=== PATIENT | male | born 1960 | race Caucasian/White ===

== ENCOUNTER 2020-06-16 18:15 | Inpatient (IN) | payer MEDICAID, MEDICARE, OTHER ==
[~2020-06-16] VITALS: Ht 172.7 cm; Wt 90.7 kg
[2020-06-16] MEDS ORDERED: METH5TAB70 PO (18:36)
[2020-06-16] MEDS ORDERED: ATOR20TA PO (18:36)
[2020-06-16] MEDS ORDERED: OLAN10TA3 PO (18:36)
[2020-06-16] MEDS ORDERED: METF500T PO (18:36)
[2020-06-16] MEDS ORDERED: THIA50TA10 PO (18:36)
[2020-06-16] MEDS ORDERED: MVI,10VI2 IV (18:36)
[2020-06-16] MEDS ORDERED: DIVA500T2 PO (18:36)
[2020-06-16] MEDS ORDERED: FOLI0.4T2 PO (18:36)
[2020-06-16] MEDS ORDERED: BUPR-96 PO (18:36)
[2020-06-16] MEDS ORDERED: TRAZ300T2 PO (18:36)
[2020-06-16 19:54] LABS: BASOPHILS # (AUTO) 0.1 K/uL (0.0-8.0); BASOPHILS % (AUTO) 0.9 % (0.0-2.0); EOSINOPHILS # (AUTO) 0.4 K/uL (0.0-0.7); HEMATOCRIT 44.5 % (36.7-47.1); HEMOGLOBIN 15.1 g/dL (12.5-16.3); LYMPHOCYTES # (AUTO) 4.2 K/uL (20.0-40.0); LYMPHOCYTES % (AUTO) 34.8 % (20.5-51.5); MEAN CORPUSCULAR HEMOGLOBIN 32.9 uug (23.8-33.4); MEAN CORPUSCULAR HGB CONC 34 g/dL (32.5-36.3); MEAN CORPUSCULAR VOLUME 96.8 fL (73.0-96.2); MONOCYTES # (AUTO) 0.8 K/uL (2.0-10.0); MONOCYTES % (AUTO) 6.4 % (0.0-11.0); NEUTROPHILS # (AUTO) 6.6 K/uL (1.8-8.9); NEUTROPHILS % (AUTO) 54.9 % (38.5-71.5); PLATELET COUNT (AUTO) 220 K/uL (152-348); WHITE BLOOD COUNT (AUTO) 12.1 K/uL (3.6-10.2)
[2020-06-16 19:55] LABS: *BILIRUBIN,URIN NEGATIVE (NEGATIVE); *CLARITY,URINE CLEAR (CLEAR); *COLOR,URINE YELLOW (YELLOW); *KETONES,URINE NEGATIVE (NEGATIVE); *UROBILINOGEN,URINE 0.2 E.U./dl (NORMAL); LEUKOCYTE ESTERASE ,URINE NEGATIVE (NEGATIVE); NITRITE, URINE NEGATIVE (NEGATIVE); UGLUCOSE NEGATIVE (NEGATIVE)
[2020-06-16 20:03] LABS: *BLOOD, URINE TRACE INTACT (NEGATIVE)
[2020-06-16 20:05] LABS: CARBON DIOXIDE 28 mmol/L (21-32); CHLORIDE 101 mmol/L (98-107); CREATININE 1.2 mg/dL (0.6-1.3); GLUCOSE 128 mg/dL (74-106); POTASSIUM 4.3 mmol/L (3.5-5.1); UREA NITROGEN, BLOOD 20 mg/dL (7-18)
[2020-06-16] MEDS: OLANZAPINE 5 MG TABLET PO ONE ×2 (20:15→20:26)
[2020-06-16 20:17] LABS: ALANINE AMINOTRANSFERASE 22 U/L (16-63); ALKALINE PHOSPHATASE 83 U/L (50-136); ASPARTATE AMINOTRANSFERASE 19 U/L (15-37); BILIRUBIN,DIRECT 0.1 mg/dL (0.0-0.2); BILIRUBIN,TOTAL 0.3 mg/dL (0.2-1.0); ETHANOL < 3 MG/DL (0-0); TOTAL PROTEIN, SERUM 7.2 g/dL (6.4-8.2)
[2020-06-16] MEDS ORDERED: CETIRIZINE HCL 10 MG TABLET ONE (20:27)
[2020-06-16 20:40] LABS: THYROID STIMULATING HORMONE 0.478 mIU/mL (0.358-3.740)
[2020-06-16 20:55] LABS: BACTERIA,URINE NONE SEEN /HPF (NONE SEEN); RBC,URINE 0-3 /HPF (0-3); SQUAMOUS EPITHELIAL CELL,UR FEW /HPF (NONE SEEN); WBC,URINE 0-3 /HPF (0-3)
[2020-06-17] MEDS ORDERED: OLANZAPINE 5 MG TABLET ONE (00:46)
[2020-06-17] MEDS ORDERED: OLANZAPINE 5 MG TABLET PO ONE (01:00)
[2020-06-17] MEDS ORDERED: ACETAMINOPHEN 325 MG TABLET PO PRN (02:00)
[2020-06-17] MEDS ORDERED: LORAZEPAM 1 MG TABLET PO PRN (02:00)
[2020-06-17] MEDS ORDERED: ZOLPIDEM 5 MG TABLET PO PRN (02:00)
[2020-06-17] MEDS ORDERED: MAGNESIUM HYDROXIDE 30 ML LIQUID UDC PO PRN (02:00)
[2020-06-17] MEDS ORDERED: MAG HYDROX/AL HYDROX/SIMETH 30 ML LIQUID UDC PO PRN (02:00)
[2020-06-17] MEDS ORDERED: BLOOD SUGAR DIAGNOSTIC 1 EACH STRIP VI ONE (02:00)
[2020-06-17 02:26] VITALS: BP 125/89
[2020-06-17 07:30] VITALS: BP 100/64
[2020-06-17] MEDS ORDERED: HYDROXYZINE PAMOATE 25 MG CAPSULE PO PRN (09:00)
[2020-06-17] MEDS: OLANZAPINE 5 MG TABLET PO SCH ×2 (11:09→16:27)
[2020-06-17] MEDS: DIVALPROEX 500 MG TABLET.DR PO SCH ×2 (11:09→20:19)
[2020-06-17] MEDS: buPROPion SR 150 MG TABLET.SA PO SCH (11:10)
[2020-06-17] MEDS: METHIMAZOLE 5 MG TABLET PO SCH ×2 (15:11→20:20)
[2020-06-17 15:52] VITALS: BP 115/75
[2020-06-17] MEDS: METFORMIN HCL 500 MG TABLET PO SCH (16:27)
[2020-06-17 20:00] VITALS: BP 122/76
[2020-06-17] MEDS: ATORVASTATIN 20 MG TABLET PO SCH (20:19)
[2020-06-17] MEDS: TRAZODONE 100 MG TABLET PO PRN (21:34)
[2020-06-18] MEDS: METHIMAZOLE 5 MG TABLET PO SCH ×3 (05:35→21:07)
[2020-06-18 07:30] VITALS: BP 109/62
[2020-06-18 08:35] LABS: CREATININE 1.2 mg/dL (0.6-1.3); POTASSIUM 4.9 mmol/L (3.5-5.1)
[2020-06-18] MEDS: FOLIC ACID 1 MG TABLET PO SCH (08:38)
[2020-06-18] MEDS: DIVALPROEX 500 MG TABLET.DR PO SCH ×2 (08:38→20:09)
[2020-06-18] MEDS: METFORMIN HCL 500 MG TABLET PO SCH ×2 (08:38→16:32)
[2020-06-18] MEDS: MULTIVIT, IRON, MIN NO. 8, FA TABLET PO SCH (08:38)
[2020-06-18] MEDS: buPROPion SR 150 MG TABLET.SA PO SCH (08:38)
[2020-06-18] MEDS: THIAMINE HCL 100 MG TABLET PO SCH (08:38)
[2020-06-18] MEDS: OLANZAPINE 5 MG TABLET PO SCH ×2 (08:38→16:32)
[2020-06-18 09:08] LABS: BILIRUBIN,TOTAL 0.4 mg/dL (0.2-1.0); TOTAL PROTEIN, SERUM 7.8 g/dL (6.4-8.2)
[2020-06-18 16:00] VITALS: BP 113/53
[2020-06-18] MEDS: ATORVASTATIN 20 MG TABLET PO SCH (20:10)
[2020-06-18 20:32] VITALS: BP 130/77
[2020-06-18] MEDS: TRAZODONE 100 MG TABLET PO PRN (21:08)
[2020-06-19] MEDS: METHIMAZOLE 5 MG TABLET PO SCH ×3 (06:06→21:01)
[2020-06-19 07:30] VITALS: BP 110/74
[2020-06-19] MEDS: MULTIVIT, IRON, MIN NO. 8, FA TABLET PO SCH (08:18)
[2020-06-19] MEDS: METFORMIN HCL 500 MG TABLET PO SCH ×2 (08:18→16:39)
[2020-06-19] MEDS: DIVALPROEX 500 MG TABLET.DR PO SCH ×2 (08:18→20:16)
[2020-06-19] MEDS: FOLIC ACID 1 MG TABLET PO SCH (08:18)
[2020-06-19] MEDS: NICOTINE 14 MG/24HR PATCH TD SCH (08:19)
[2020-06-19] MEDS: THIAMINE HCL 100 MG TABLET PO SCH (08:19)
[2020-06-19] MEDS: OLANZAPINE 5 MG TABLET PO SCH ×2 (08:19→16:39)
[2020-06-19] MEDS: buPROPion SR 150 MG TABLET.SA PO SCH (08:21)
[2020-06-19 15:31] VITALS: BP 110/72
[2020-06-19] MEDS: ATORVASTATIN 20 MG TABLET PO SCH (20:16)
[2020-06-19 20:36] VITALS: BP 106/70
[2020-06-19] MEDS: TRAZODONE 100 MG TABLET PO PRN (21:01)
[2020-06-20] MEDS: METHIMAZOLE 5 MG TABLET PO SCH ×3 (05:48→21:02)
[2020-06-20 07:30] VITALS: BP 92/51
[2020-06-20] MEDS: MULTIVIT, IRON, MIN NO. 8, FA TABLET PO SCH (08:19)
[2020-06-20] MEDS: OLANZAPINE 5 MG TABLET PO SCH ×2 (08:19→17:11)
[2020-06-20] MEDS: DIVALPROEX 500 MG TABLET.DR PO SCH ×2 (08:20→21:02)
[2020-06-20] MEDS: buPROPion SR 150 MG TABLET.SA PO SCH (08:20)
[2020-06-20] MEDS: FOLIC ACID 1 MG TABLET PO SCH (08:20)
[2020-06-20] MEDS: THIAMINE HCL 100 MG TABLET PO SCH (08:20)
[2020-06-20] MEDS: NICOTINE 14 MG/24HR PATCH TD SCH (08:21)
[2020-06-20] MEDS: METFORMIN HCL 500 MG TABLET PO SCH ×2 (08:21→17:11)
[2020-06-20 15:33] VITALS: BP 91/51
[2020-06-20 20:00] VITALS: BP 104/57
[2020-06-20] MEDS: TRAZODONE 100 MG TABLET PO PRN (21:02)
[2020-06-20] MEDS: ATORVASTATIN 20 MG TABLET PO SCH (21:02)
[2020-06-21] MEDS: METHIMAZOLE 5 MG TABLET PO SCH ×3 (06:04→20:30)
[2020-06-21 07:30] VITALS: BP 111/48
[2020-06-21] MEDS: NICOTINE 14 MG/24HR PATCH TD SCH (08:11)
[2020-06-21] MEDS: DIVALPROEX 500 MG TABLET.DR PO SCH ×2 (08:12→20:30)
[2020-06-21] MEDS: buPROPion SR 150 MG TABLET.SA PO SCH (08:12)
[2020-06-21] MEDS: FOLIC ACID 1 MG TABLET PO SCH (08:12)
[2020-06-21] MEDS: OLANZAPINE 5 MG TABLET PO SCH ×2 (08:12→16:14)
[2020-06-21] MEDS: METFORMIN HCL 500 MG TABLET PO SCH ×2 (08:13→16:14)
[2020-06-21] MEDS: THIAMINE HCL 100 MG TABLET PO SCH (08:13)
[2020-06-21] MEDS: MULTIVIT, IRON, MIN NO. 8, FA TABLET PO SCH (08:13)
[2020-06-21 17:09] VITALS: BP 121/83
[2020-06-21 20:00] VITALS: BP 94/61
[2020-06-21] MEDS: ATORVASTATIN 20 MG TABLET PO SCH (20:30)
[2020-06-22] MEDS: TRAZODONE 100 MG TABLET PO PRN (00:45)
[2020-06-22] MEDS: METHIMAZOLE 5 MG TABLET PO SCH (06:05)
[2020-06-22 07:30] VITALS: BP 104/67
[2020-06-22] MEDS: NICOTINE 14 MG/24HR PATCH TD SCH (08:07)
[2020-06-22] MEDS: buPROPion SR 150 MG TABLET.SA PO SCH (08:07)
[2020-06-22] MEDS: FOLIC ACID 1 MG TABLET PO SCH (08:07)
[2020-06-22] MEDS: METFORMIN HCL 500 MG TABLET PO SCH (08:07)
[2020-06-22] MEDS: THIAMINE HCL 100 MG TABLET PO SCH (08:07)
[2020-06-22] MEDS: DIVALPROEX 500 MG TABLET.DR PO SCH (08:07)
[2020-06-22] MEDS: MULTIVIT, IRON, MIN NO. 8, FA TABLET PO SCH (08:07)
[2020-06-22] MEDS: OLANZAPINE 5 MG TABLET PO SCH (08:07)
== END 2020-06-22 11:00 | disposition home or self-care (01) | DRG 885 ==
LOC: ER 18:15 → GPS 22:30
PROVIDERS: ADMIT Psychiatry & Neurology Psychiatry; ATTEND Nurse Practitioner Acute Care
DX: F25.1 Schizoaffective disorder, depressive type (principal); E11.9 Type 2 diabetes mellitus without complications; Z79.84 Long term (current) use of oral hypoglycemic drugs; F14.10 Cocaine abuse, uncomplicated; F10.10 Alcohol abuse, uncomplicated; Z59.0 Homelessness; E05.90 Thyrotoxicosis, unspecified without thyrotoxic crisis or storm; D72.829 Elevated white blood cell count, unspecified; E78.5 Hyperlipidemia, unspecified; F17.210 Nicotine dependence, cigarettes, uncomplicated; F29 Unspecified psychosis not due to a substance or known physiological condition; E66.9 Obesity, unspecified; Z68.30 Body mass index [BMI] 30.0-30.9, adult; Y90.0 Blood alcohol level of less than 20 mg/100 ml
CPT/HCPCS: 36415; 70030-TC; 71045; 80164; 84443; 85025; 93005; A4663; G0480